=== PATIENT | male | born 1950 | race Caucasian/White ===

== ENCOUNTER → 2017-06-11 | Day surgery (SDC) | payer OTHER ==
[2017-06-10 09:05] LABS: BASOPHILS % 0.5 % (0.0-1.0); EOSINOPHILS # (AUTO) 0.1 (0.0-0.4); EOSINOPHILS % 1.7 % (0.0-6.0); HEMATOCRIT 39.8 % (38.2-49.6); LYMPHOCYTES # (AUTO) 2.5 (1.0-3.2); LYMPHOCYTES % 30.6 % (18.0-39.1); MEAN CORPUSCULAR HEMOGLOBIN 30.4 pg (28-32); MEAN CORPUSCULAR HGB CONC 32.7 g/dL (31-35); MONOCYTES # (AUTO) 0.6 (0.2-0.8); MONOCYTES % 7.6 % (4.4-11.3); NEUTROPHILS # (AUTO) 4.9 (2.1-6.9); NEUTROPHILS % 59.4 % (38.7-80.0); PLATELET COUNT 151 x10e3/uL (140-360); RED BLOOD COUNT 4.28 x10e6/uL (4.3-5.7); RED CELL DISTRIBUTION WIDTH 13.2 % (11.7-14.4)
--- NOTE | 2017-06-10 10:00 | Diagnostic Imaging Report ---
PROCEDURE: X-RAY CHEST, TWO VIEWS COMPARISON: None. INDICATIONS: PRE OPERATIVE CHEST X-RAY FOR KIDNEY SURGERY FINDINGS: LUNGS: No consolidations or edema. PLEURA: No effusions or pneumothorax. HEART \T\ MEDIASTINUM: The heart is within normal size-limits. BONES \T\ SOFT TISSUES: No acute findings. Degenerative changes of the spine. CONCLUSION: No acute thoracic abnormality. Bert Patel D.O. Dictated by: Bert Patel D.O. on 06/10/2017 at 10:09 Electronically approved by: Bert Patel D.O. on 06/10/2017 at 10:09
[~2017-06-11] MED LIST: AMLODIPINE BESY10 MG PO; CEFAZOLIN SOD 2 GM/D5W 50ML 50 ML IV ONE; FENTANYL CITRATE/PF 100MCG/2 ML INJ ONE; IOPAMIDOL 610MG/1ML 300 MG/ML VIAL IV ONE; LIDOCAINE HCL 2% LOCAL INJ 5 ML SDV VIAL INJ ONE; LISINOPRIL40 MG PO; MIDAZOLAM HCL 2 MG/2 ML VIAL ONE; ONDANSETRON HCL INJ 2 MG/ML VIAL ONE; PROPOFOL IV EMULSION 10 MG/ML 50 ML VIAL ONE; SEVOFLURANE INHAL SOLN 250 ML PEN BTL ONE
--- OUTSIDE RECORDS SUMMARY | 2017-06-11 08:44 | XMS REPORT ---
Author [facility] Address Unknown Phone Unavailable Care Team Providers Care Merchandising Coordinator Name Role Phone ANNEMARIE PARRY Unavailable Unavailable Problems This patient has no known problems. Allergies, Adverse Reactions, Alerts This patient has no known allergies or adverse reactions. Medications This patient has no known medications. Results Test Description Test Time Test Comments Text Results Atomic Results Result Comments CHEST 2 VIEWS [place] [address] Patient Name: PIPPA GRIMM MR #: [id number] : 1950 Age/Sex: 67/M Req # : [id number] Adm Physician: Ordered by: ANNEMARIE PARRY MD Report #: [id number] Location: OR Room/Bed: Procedure: [id number] DX/CHEST 2 VIEWS Exam Date: 06/10/17 Exam Time: 0830 REPORT STATUS: Signed PROCEDURE: X-RAY CHEST, TWO VIEWS COMPARISON: None. INDICATIONS: PRE OPERATIVE CHEST X-RAY FOR KIDNEY SURGERY FINDINGS: LUNGS: No consolidations or edema. PLEURA: No effusions or pneumothorax. HEART T MEDIASTINUM: The heart is within normal size-limits. BONES T SOFT TISSUES: No acute findings. Degenerative changes of the spine. CONCLUSION: No acute thoracic abnormality. Romy Patel D.O. Dictated by: Romy Patel D.O. on 06/10/2017 at 10:09 Electronically approved by: Romy Patel D.O. on 06/10/2017 at 10:09 Dictated By: ROMY PATEL DO 1009 Transcribed By: BRITNEY on 06/10/17 1009 COPY TO: ANNEMARIE PARRY MD
--- NOTE | 2017-06-11 12:32 | Operative Report ---
DATE OF PROCEDURE: June 11, 2017 SERVICE: Urology. PREOPERATIVE DIAGNOSES 1. Gross hematuria, recurrent. 2. Right hydronephrosis. 3. Right ureteropelvic junction. 4. BPH and frequency. POSTOPERATIVE DIAGNOSES 1. Gross hematuria, recurrent. 2. Right hydronephrosis. 3. Right ureteropelvic junction. 4. BPH and frequency. OPERATION PERFORMED 1. Cystoscopy and left retrograde pyelogram under fluoroscopic control. This was done with different instrument not related to the contralateral side. 2. Right retrograde pyelogram under fluoroscopic control. 3. Right ureteroscopy. 4. Placement of double-J stent, 7 [place]an, 28 cm long, to the right side. 5. Interpretation of x-ray. Radiologist not present. 6. Supervision of fluoroscopy. Radiologist not present. FELT HAT STEAMER: None. ANESTHESIA: General. CLINICAL INDICATION NOTE: This is a 67-year-old patient who was brought for assessment of recurrent hematuria. On and off, the patient has significant hematuria. Patient has mild symptoms of prostatism as well. He was brought for evaluation of both sides. DESCRIPTION OF PROCEDURE AND FINDINGS: After proper level of anesthesia was achieved, the patient was placed in lithotomy position, prepped and draped in sterile fashion. Urethra was inspected and is unremarkable. The outlet is minimally obstructed by a large prostate. Bladder is somewhat trabeculated. No tumor and no foreign bodies were identified in the bladder. Both ureteral orifices are normal. Open-ended catheter was inserted to the left side, and retrograde pyelogram demonstrated a normal collecting system on the left side. Following this, open-ended catheter was inserted to the right side. Retrograde pyelogram demonstrated normal ureter up to the UPJ junction. It was possible to negotiate a wire up into the renal pelvis, and an open-ended catheter was inserted. Gross bloody urine is noticed. This was sent for culture and sensitivity. Following this, the guidewire was kept in place, and flexible ureteroscopy was done. It was possible to insert the scope into the UPJ. The renal pelvis is extensively dilated. Some calices are dilated as well. Due to the hematuria, it was not possible to identify clearly whether there is any significant pathology except the UPJ and the dilated system. Therefore, it was elected to place a double-J stent. The guidewire was kept in place, and a 7-Sing[place]an, 28 cm long, double-J stent was properly positioned on the right side. This was verified by x-ray and endoscopy. The patient tolerated the procedure well and was transferred in satisfactory condition to the recovery room. He will be followed for further evaluation. Job#: [id number] ADIEL
== END | disposition home or self-care (01) ==
LOC: OR 08:42
PROVIDERS: ATTEND Urology
DX: N13.5 Crossing vessel and stricture of ureter without hydronephrosis (principal); N13.30 Unspecified hydronephrosis; N40.1 Benign prostatic hyperplasia with lower urinary tract symptoms; R35.0 Frequency of micturition; I10 Essential (primary) hypertension; I44.0 Atrioventricular block, first degree; Z01.810 Encounter for preprocedural cardiovascular examination; Z01.812 Encounter for preprocedural laboratory examination; Z01.818 Encounter for other preprocedural examination; Z85.038 Personal history of other malignant neoplasm of large intestine
CPT/HCPCS: 36415; 52332; 52351; 71046; 74420; 85025; 87086; 93005; C2617; J2001; J2250; J2405; Q9967

== ENCOUNTER → 2017-08-11 | Day surgery (SDC) | payer OTHER ==
[~2017-08-11] MED LIST changes: +BELLADONNA/OPIUM 60 MG SUPP PR ONE; +CEFAZOLIN SOD 1 GM VIAL ONE; -CEFAZOLIN SOD 2 GM/D5W 50ML 50 ML IV ONE; +DEXAMETHASONE SOD PHOS INJ 4 MG/ML VIAL ONE; +IOPAMIDOL 300MG/ML 50ML INFUS..BTL IV ONE; -IOPAMIDOL 610MG/1ML 300 MG/ML VIAL IV ONE; +PROPOFOL IV EMULSION 10 MG/ML 20 ML VIAL ONE; -PROPOFOL IV EMULSION 10 MG/ML 50 ML VIAL ONE
--- NOTE | 2017-08-11 10:52 | Operative Report ---
DATE OF PROCEDURE: August 11, 2017 PREOPERATIVE DIAGNOSES 1. History of gross hematuria. 2. Right hydronephrosis. 3. Right double-J stent. POSTOPERATIVE DIAGNOSES 1. History of gross hematuria. 2. Right hydronephrosis. 3. Right double-J stent. 4. Question of ureteropelvic junction obstruction. 5. Tumor in the right pelvis. FIELD MECHANIC/SITE LEAD: None. OPERATION PERFORMED 1. Cystoscopy and removal of right double-J stent. 2. Right retrograde pyelogram under fluoroscopic control. 3. Right ureteroscopy and urine cytology sent from the right renal pelvis. 4. Placement of double-J stent, 7 [place]yan, 26 cm long, to the right side. 5. Interpretation of x-ray with radiologist not present. 6. Supervision of fluoroscopy with radiologist not present. ANESTHESIA: General. CLINICAL INDICATION NOTE: This is a 67-year-old patient who is brought for evaluation of question of UPJ on the right side, hydronephrosis, and gross hematuria coming from the right side. The patient was advised about the procedure, potential benefits and complications. DESCRIPTION OF PROCEDURE AND FINDINGS: After proper level of anesthesia was achieved, the patient was placed in lithotomy position, prepped and draped in usual sterile fashion. Urethra was inspected and was unremarkable, but the outlet is obstructed by a large prostate. Bladder is trabeculated. No tumor or foreign bodies identified in the bladder. Open-ended catheter is seen coming from the right ureteral orifice. The double J was pulled out through the urethral meatus, and a guidewire was passed through it and advanced to the kidney. Open-ended catheter followed. Retrograde pyelogram demonstrated quite distended renal pelvis and question of some irregular areas. Ureter is unremarkable. Following this, the wire was kept in place, and a flexible ureteroscopy was done. At the ureteropelvic junction, it appeared to be relatively narrow and somewhat irregular. There were also some irregular areas in the pelvis. No gross hematuria is present now. The renal pelvis urine was aspirated and sent for cytology. The guidewire was then kept in place, and a double-J stent, 7 [place]yan, 26 cm long, was properly positioned on the right side. The proximal part is in the renal pelvis and the distal in the bladder. This was verified by x-ray and endoscopy. The bladder was then irrigated. The scope was removed. The patient tolerated the procedure well and was transferred in satisfactory condition to the recovery room. Further treatment plan will be done after receiving the cytology reports. Job#: [id number] ADIEL
== END | disposition home or self-care (01) ==
LOC: OR 06:49
PROVIDERS: ATTEND Urology
DX: N13.30 Unspecified hydronephrosis (principal); Z46.6 Encounter for fitting and adjustment of urinary device; N32.89 Other specified disorders of bladder; R03.0 Elevated blood-pressure reading, without diagnosis of hypertension; Z87.891 Personal history of nicotine dependence
CPT/HCPCS: 52332; 52351; 74420; 88112; 88305; C2617; J0690; J1100; J2001; J2250; J2405; Q9967

== ENCOUNTER 2017-09-07 11:29 | Inpatient (IN) | payer OTHER ==
[2017-09-04 11:30] LABS: BASOPHILS % 0.4 % (0.0-1.0); EOSINOPHILS # (AUTO) 0.1 (0.0-0.4); HEMATOCRIT 41.1 % (38.2-49.6); HEMOGLOBIN 13.6 g/dL (14.0-18.0); MEAN CORPUSCULAR HEMOGLOBIN 30.6 pg (28-32); MEAN CORPUSCULAR HGB CONC 33.1 g/dL (31-35); MEAN CORPUSCULAR VOLUME 92.6 fL (81-99); MONOCYTES # (AUTO) 0.6 (0.2-0.8); MONOCYTES % 6.4 % (4.4-11.3); NEUTROPHILS # (AUTO) 6.3 (2.1-6.9); PLATELET COUNT 198 x10e3/uL (140-360); RED BLOOD COUNT 4.44 x10e6/uL (4.3-5.7); RED CELL DISTRIBUTION WIDTH 14.1 % (11.7-14.4)
[2017-09-04 11:41] LABS: INR 1.04; PROTHROMBIN TIME 12.8 seconds (11.9-14.5)
[2017-09-04 11:42] LABS: PARTIAL THROMBOPLASTIN TIME 26.5 seconds (23.8-35.5)
[2017-09-04 11:46] LABS: ANION GAP 11.3 mmol/L (8-16); CALCIUM 9.8 mg/dL (8.4-10.2); CREATININE, SERUM 1.52 mg/dL (0.72-1.25); POTASSIUM 5.3 mmol/L (3.5-5.1)
[~2017-09-07] VITALS: Ht 185.4 cm; Wt 127.5 kg
[~2017-09-07 11:29] MED LIST changes: -BELLADONNA/OPIUM 60 MG SUPP PR ONE; -CEFAZOLIN SOD 1 GM VIAL ONE; -DEXAMETHASONE SOD PHOS INJ 4 MG/ML VIAL ONE; -FENTANYL CITRATE/PF 100MCG/2 ML INJ ONE; +GELATIN SPONGE SZ 100 ONE; -IOPAMIDOL 300MG/ML 50ML INFUS..BTL IV ONE; -LIDOCAINE HCL 2% LOCAL INJ 5 ML SDV VIAL INJ ONE; +MANNITOL 25% 12.5GM/50ML 0 ML ONE; -MIDAZOLAM HCL 2 MG/2 ML VIAL ONE; -ONDANSETRON HCL INJ 2 MG/ML VIAL ONE; -PROPOFOL IV EMULSION 10 MG/ML 20 ML VIAL ONE; -SEVOFLURANE INHAL SOLN 250 ML PEN BTL ONE
[2017-09-07] MEDS ORDERED: CEFAZOLIN SOD 2 GM/D5W 50ML 50 ML IV ONE (11:46)
[2017-09-07] MEDS ORDERED: PROPOFOL IV EMULSION 10 MG/ML 20 ML VIAL ONE (14:25)
[2017-09-07] MEDS ORDERED: EPHEDRINE SULFATE INJ 50 MG/10 ML SYR ONE (14:25)
[2017-09-07] MEDS ORDERED: LIDOCAINE HCL 2% LOCAL INJ 5 ML SDV VIAL INJ ONE (14:25)
[2017-09-07] MEDS ORDERED: NEOSTIGMINE 5 MG/5ML SYR ONE (14:25)
[2017-09-07] MEDS ORDERED: ONDANSETRON HCL INJ 2 MG/ML VIAL ONE (14:25)
[2017-09-07] MEDS ORDERED: SEVOFLURANE INHAL SOLN 250 ML PEN BTL ONE (14:25)
[2017-09-07] MEDS ORDERED: DEXAMETHASONE SOD PHOS INJ 4 MG/ML VIAL ONE (14:25)
[2017-09-07] MEDS ORDERED: PHENYLEPHRINE HCL 1% 10 MG/ML VIAL ONE (14:25)
[2017-09-07] MEDS ORDERED: GLYCOPYRROLATE INJ 1MG/ 5 ML SYR ONE (14:25)
[2017-09-07] MEDS ORDERED: ONDANSETRON HCL INJ 2 MG/ML VIAL IV PRN (14:45)
[2017-09-07] MEDS ORDERED: DIPHENHYDRAMINE HCL INJ 50 MG/ML VIAL IM PRN (14:45)
[2017-09-07] MEDS ORDERED: MORPHINE SULFATE 1 MG/ML 30ML PCA IV PRN (14:45)
[2017-09-07] MEDS ORDERED: NALOXONE HCL INJ 0.4 MG/ML AMP IV PRN (14:45)
[2017-09-07] MEDS ORDERED: METOCLOPRAMIDE HCL 10 MG/2ML VIAL IV PRN (14:45)
[2017-09-07] MEDS ORDERED: MORPHINE SULFATE 1 MG/ML 30ML PCA ONE (15:34)
--- NOTE | 2017-09-07 16:48 | Diagnostic Imaging Report ---
PROCEDURE: A single AP view of the chest. COMPARISON: 06/10/17 INDICATIONS: RIGHT NEPHRECTOMY FINDINGS: Lines/tubes: None. Lungs: Limited by low lung volumes and body habitus. Right infrahilar and left basilar hazy opacification. Pleura: There is no significant pleural effusion or pneumothorax. Heart and mediastinum: Enlarged cardiomediastinal silhouette on this AP view. Bones: No acute bony abnormality. Free air under right hemidiaphragm. IMPRESSION: Limited as above. Right infrahilar and left basilar mild opacifications probably atelectasis. Underlying pneumonia cannot be entirely excluded in the appropriate clinical setting. Free air under the right hemidiaphragm, which is probably related to recent surgery. Dictated by: Narinder Grijalva M.D. on 09/07/2017 at 16:50 Electronically approved by: Narinder Grijalva M.D. on 09/07/2017 at 16:50
[2017-09-07] MEDS ORDERED: DOCUSATE SODIUM 100 MG CAP PO SCH (17:00)
[2017-09-07 17:13] VITALS: BP 152/71
[2017-09-07] MEDS: D5.45%NS/KCL 20MEQ 1,000 ML IV SCH (17:38)
[2017-09-07] MEDS: SODIUM CHLORIDE 0.9% 250ML IRRIG IR SCH ×3 (17:38→23:24)
[2017-09-07] MEDS ORDERED: MIDAZOLAM HCL 2 MG/2 ML VIAL ONE (17:48)
[2017-09-07] MEDS ORDERED: FENTANYL CITRATE/PF 100MCG/2 ML INJ ONE (17:48)
[2017-09-07 20:00] VITALS: BP 143/75
[2017-09-07 21:18] VITALS: BP 152/71
[2017-09-07] MEDS: CEFAZOLIN SOD 1 GM VIAL IV SCH (21:51)
[2017-09-07] MEDS ORDERED: CEFAZOLIN SOD 1 GM/NS 50ML 50 ML IV SCH (22:00)
--- NOTE | 2017-09-07 23:27 | Operative Report ---
DATE OF PROCEDURE: September 07, 2017 SERVICE: Urology. PREOPERATIVE DIAGNOSES 1. Right renal mass. 2. Right hydronephrosis. 3. Right uteropelvic junction obstruction. 4. Hematuria. 5. Stent on the right side. POSTOPERATIVE DIAGNOSES 1. Right renal mass. 2. Right hydronephrosis. 3. Right uteropelvic junction obstruction. 4. Hematuria. 5. Stent on the right side. OPERATIONS PERFORMED 1. Radical nephrectomy. 2. Removal of a double-J stent through urethrotomy. SLOT MACHINE MECHANIC: Dr. Quan Bass. TYPE OF ANESTHESIA: General. CLINICAL INDICATION NOTE: This is a 67-year-old patient that was found to have hematuria, poorly functioning kidney on the right side about 6% of the function and the UPJ obstruction, question of a tumor in the kidney. The patient was brought for radical nephrectomy and removal of the double-J stent. He was advised about the procedure and the potential for benefits, as well as complications, and accepted. DESCRIPTION OF PROCEDURE AND FINDINGS: After proper level of anesthesia was achieved, the patient was placed in right flank position. Incision was made over the lower rib and extended anteriorly about 3 inches of the rib were then dissected and removed. Following this, Gerota fascia content of the kidney was dissected circumferentially anteriorly and posteriorly. Of note, there was a significant adherence to the kidney, to the tissue, and a palpable mass was noticed. Dissection of the ureter was then done. Short transverse incision was made in the ureter. The double-J stent was removed and the ureter was ligated proximally and distally. No tumor was noticed in the ureter. Following this dissection, posteriorly identified the renal artery. It was ligated with #1 silk and vascular clips were able for security. Following this, dissection was done superiorly, inferiorly, and medially. The renal vein was identified and due to the significant adherence around it, it was closed by suturing it with 0-Prolene running sutures. No active bleeding was noticed at the end. Small openings of the chest was identified. The air was aspirated with the suction and overinflating of the lung and closed with 2-0 Vicryl running sutures. The wound was irrigated periodically with distilled water. Hence, a 19-Jaime drain was placed and brought through a separate stab incision and secured to the skin with a nylon suture. The wound was closed in layers using 0-Vicryl interrupted figure-of-8. The internal oblique and the transversalis were sutured in 1 layer. The external oblique as a separate layer. Between each layer, irrigation was done. The skin was approximated with skin tomasz. Patient tolerated the procedure well, was transferred in satisfactory condition to recovery room. He will be admitted. The specimen was sent to pathology for frozen section and the pathologist informed us that she noticed a tumor in the kidney. 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 Final pathology will be pending. Upon the filling of the final pathology, further steps in management will be decided. Estimated blood loss during the procedure probably 1 unit. Patient tolerated the procedure well. Cowart was kept. Job#: [id number] CQ
[2017-09-08] VITALS (7 sets, daily range): BP systolic 144–172; BP diastolic 74–88
[2017-09-08] MEDS: SODIUM CHLORIDE 0.9% 250ML IRRIG IR SCH ×6 (02:45→22:55)
[2017-09-08] MEDS: D5.45%NS/KCL 20MEQ 1,000 ML IV SCH (05:53)
[2017-09-08] MEDS: CEFAZOLIN SOD 1 GM VIAL IV SCH ×3 (05:54→21:35)
[2017-09-08] MEDS: ACETAMINOPHEN 1000 MG/100 ML IV PRN ×2 (05:54→12:32)
[2017-09-08 07:14] LABS: BASOPHILS % 0.1 % (0.0-1.0); HEMATOCRIT 38.1 % (38.2-49.6); HEMOGLOBIN 12.6 g/dL (14.0-18.0); LYMPHOCYTES # (AUTO) 1.1 (1.0-3.2); LYMPHOCYTES % 7.3 % (18.0-39.1); MEAN CORPUSCULAR HEMOGLOBIN 30.7 pg (28-32); MEAN CORPUSCULAR HGB CONC 33.1 g/dL (31-35); MEAN CORPUSCULAR VOLUME 92.9 fL (81-99); MONOCYTES # (AUTO) 0.9 (0.2-0.8); NEUTROPHILS # (AUTO) 12.8 (2.1-6.9); NEUTROPHILS % 86.1 % (38.7-80.0); PLATELET COUNT 201 x10e3/uL (140-360); RED CELL DISTRIBUTION WIDTH 13.6 % (11.7-14.4)
[2017-09-08 07:44] LABS: ANION GAP 11.1 mmol/L (8-16); CALCIUM 8.6 mg/dL (8.4-10.2); CREATININE, SERUM 1.49 mg/dL (0.72-1.25); POTASSIUM 5.1 mmol/L (3.5-5.1)
[2017-09-08] MEDS ORDERED: HYDROMORPHONE 1MG/1ML INJ IV PRN (08:45)
[2017-09-08] MEDS: HYDRALAZINE HCL 20 MG/ML VIAL IV PRN (09:38)
[2017-09-08] MEDS: DEXTROSE 5%/0.45% SOD CHL 1,000 ML IV SCH ×2 (09:38→22:56)
[2017-09-08] MEDS ORDERED: ONDANSETRON HCL 4 MG ORAL DISINTEGRATING TAB PO PRN (10:30)
[2017-09-08] MEDS ORDERED: HYDROMORPHONE 2MG/ML INJ IV PRN (12:45)
[2017-09-08] MEDS: HYDROMORPHONE 2MG/ML INJ IV PRN ×2 (14:04→22:27)
[2017-09-08] MEDS: METOPROLOL TARTRATE INJ 1 MG/ML VIAL IV PRN (21:35)
[2017-09-09] VITALS (7 sets, daily range): BP systolic 137–170; BP diastolic 69–82
[2017-09-09] MEDS: SODIUM CHLORIDE 0.9% 250ML IRRIG IR SCH ×3 (01:16→10:19)
[2017-09-09] MEDS: CEFAZOLIN SOD 1 GM VIAL IV SCH ×3 (05:38→21:17)
[2017-09-09] MEDS: METOPROLOL TARTRATE INJ 1 MG/ML VIAL IV PRN (06:03)
[2017-09-09 07:38] LABS: BASOPHILS % 0.1 % (0.0-1.0); EOSINOPHILS % 0.1 % (0.0-6.0); HEMATOCRIT 37.7 % (38.2-49.6); HEMOGLOBIN 12.6 g/dL (14.0-18.0); LYMPHOCYTES # (AUTO) 1.6 (1.0-3.2); LYMPHOCYTES % 10.4 % (18.0-39.1); MEAN CORPUSCULAR HEMOGLOBIN 31.1 pg (28-32); MEAN CORPUSCULAR HGB CONC 33.4 g/dL (31-35); MEAN CORPUSCULAR VOLUME 93.1 fL (81-99); MONOCYTES # (AUTO) 0.9 (0.2-0.8); NEUTROPHILS # (AUTO) 12.4 (2.1-6.9); PLATELET COUNT 196 x10e3/uL (140-360); RED BLOOD COUNT 4.05 x10e6/uL (4.3-5.7); RED CELL DISTRIBUTION WIDTH 13.8 % (11.7-14.4)
[2017-09-09 07:57] LABS: ANION GAP 12.4 mmol/L (8-16); CALCIUM 9.2 mg/dL (8.4-10.2); CREATININE, SERUM 1.3 mg/dL (0.72-1.25); POTASSIUM 4.4 mmol/L (3.5-5.1)
[2017-09-09] MEDS: HYDROMORPHONE 2MG/ML INJ IV PRN (08:15)
[2017-09-09] MEDS: KETOROLAC TROMETHAMINE 30 MG/ML VIAL IV PRN ×2 (13:47→20:13)
[2017-09-09] MEDS: DEXTROSE 5%/0.45% SOD CHL 1,000 ML IV SCH (17:46)
[2017-09-10] VITALS (7 sets, daily range): BP systolic 154–174; BP diastolic 68–86
[2017-09-10] MEDS: DEXTROSE 5%/0.45% SOD CHL 1,000 ML IV SCH ×2 (00:45→07:32)
[2017-09-10] MEDS: METOPROLOL TARTRATE INJ 1 MG/ML VIAL IV PRN (01:00)
[2017-09-10] MEDS: HYDRALAZINE HCL 20 MG/ML VIAL IV PRN (05:00)
[2017-09-10] MEDS: CEFAZOLIN SOD 1 GM VIAL IV SCH ×3 (05:30→21:54)
[2017-09-10] MEDS: KETOROLAC TROMETHAMINE 30 MG/ML VIAL IV PRN (05:43)
[2017-09-10 07:34] LABS: BASOPHILS % 0.3 % (0.0-1.0); EOSINOPHILS # (AUTO) 0.1 (0.0-0.4); EOSINOPHILS % 0.5 % (0.0-6.0); HEMATOCRIT 38.5 % (38.2-49.6); HEMOGLOBIN 12.5 g/dL (14.0-18.0); LYMPHOCYTES # (AUTO) 1.8 (1.0-3.2); LYMPHOCYTES % 15.3 % (18.0-39.1); MEAN CORPUSCULAR HEMOGLOBIN 30.5 pg (28-32); MEAN CORPUSCULAR HGB CONC 32.5 g/dL (31-35); MEAN CORPUSCULAR VOLUME 93.9 fL (81-99); MONOCYTES # (AUTO) 0.8 (0.2-0.8); MONOCYTES % 6.6 % (4.4-11.3); NEUTROPHILS # (AUTO) 8.9 (2.1-6.9); NEUTROPHILS % 76.9 % (38.7-80.0); PLATELET COUNT 211 x10e3/uL (140-360); RED CELL DISTRIBUTION WIDTH 13.5 % (11.7-14.4)
[2017-09-10 07:55] LABS: ANION GAP 12.2 mmol/L (8-16); CALCIUM 9.4 mg/dL (8.4-10.2); CREATININE, SERUM 1.54 mg/dL (0.72-1.25); POTASSIUM 4.2 mmol/L (3.5-5.1)
[2017-09-10] MEDS: AMLODIPINE BESYLATE 10 MG TAB PO SCH (15:05)
[2017-09-10] MEDS: ACETAMINOPHEN/CODEINE 300MG - 30MG TAB PO PRN (21:40)
[2017-09-11] VITALS: BP 147/84
[2017-09-11 04:00] VITALS: BP 132/87
[2017-09-11] MEDS: CEFAZOLIN SOD 1 GM VIAL IV SCH ×2 (05:56→14:00)
[2017-09-11 08:01] LABS: BASOPHILS % 0.3 % (0.0-1.0); EOSINOPHILS # (AUTO) 0.3 (0.0-0.4); EOSINOPHILS % 3.2 % (0.0-6.0); HEMATOCRIT 36.3 % (38.2-49.6); LYMPHOCYTES # (AUTO) 1.9 (1.0-3.2); LYMPHOCYTES % 20.3 % (18.0-39.1); MEAN CORPUSCULAR HEMOGLOBIN 30.7 pg (28-32); MEAN CORPUSCULAR HGB CONC 33.1 g/dL (31-35); MEAN CORPUSCULAR VOLUME 92.8 fL (81-99); MONOCYTES # (AUTO) 0.7 (0.2-0.8); MONOCYTES % 7.1 % (4.4-11.3); NEUTROPHILS # (AUTO) 6.6 (2.1-6.9); NEUTROPHILS % 68.8 % (38.7-80.0); PLATELET COUNT 211 x10e3/uL (140-360); RED BLOOD COUNT 3.91 x10e6/uL (4.3-5.7); RED CELL DISTRIBUTION WIDTH 13.4 % (11.7-14.4)
[2017-09-11 08:24] VITALS: BP 159/84
[2017-09-11 08:30] LABS: ANION GAP 12.6 mmol/L (8-16); CALCIUM 9.3 mg/dL (8.4-10.2); CREATININE, SERUM 1.49 mg/dL (0.72-1.25); POTASSIUM 3.6 mmol/L (3.5-5.1)
--- NOTE | 2017-09-11 09:21 | Discharge Summary ---
PRIMARY CARE PHYSICIAN: Dr. Kely Tsang EMPLOYEE DEVELOPMENT DIRECTOR: Dr. Norberto Bass FINAL DIAGNOSES 1. Status post right radical nephrectomy secondary to right renal mass. 2. History of hydronephrosis and hematuria. SUMMARY: This 67-year-old male had major surgery, right renal mass nephrectomy. Patient will need a secondary procedure later to remove his right ureter area. The patient is otherwise stable at this time. He had an ileus. NG tube was placed and continued post surgery, but it was removed within 24 to 48 hours. Currently, the patient is stable. He is doing well. He will go home today. He will follow up with Dr. Norberto Bass in approximately 1 to 2 weeks for postoperative care. He will follow up with his family doctor for any adjustments and update on his medications. Discharged with a 2 gram sodium diet. Activity as needed. Followup per Dr. Bass's instructions. Job#: [id number]
[2017-09-11] MEDS: AMLODIPINE BESYLATE 10 MG TAB PO SCH (09:49)
[2017-09-11 09:55] VITALS: BP 159/84
[2017-09-11] MEDS: ACETAMINOPHEN/CODEINE 300MG - 30MG TAB PO PRN (11:58)
[2017-09-11 12:34] VITALS: BP 145/80
[2017-09-11] MEDS ORDERED: TYLENOL WITH C1 EACH PO (12:49)
[2017-09-11] MEDS ORDERED: COLACE100 MG/10 PO (12:50)
[2017-09-11] MEDS ORDERED: COLACE100 MG PO (12:50)
== END 2017-09-11 14:57 | disposition home or self-care (01) | DRG 657 ==
LOC: OR 11:29 → MED/SURG 15:41
PROVIDERS: ADMIT Internal Medicine; ATTEND Internal Medicine
PROC: 0TP98DZ Removal of Intraluminal Device from Ureter, Via Natural or Artificial Opening Endoscopic (ICD-10-PCS; 2017-09-07)
PROC: 0TB00ZZ Excision of Right Kidney, Open Approach (ICD-10-PCS; principal; 2017-09-07 13:30)
DX: C64.1 Malignant neoplasm of right kidney, except renal pelvis (principal); N13.0 Hydronephrosis with ureteropelvic junction obstruction; N28.89 Other specified disorders of kidney and ureter; K42.9 Umbilical hernia without obstruction or gangrene; I12.9 Hypertensive chronic kidney disease with stage 1 through stage 4 chronic kidney disease, or unspecified chronic kidney disease; N18.9 Chronic kidney disease, unspecified; E66.9 Obesity, unspecified; Z68.37 Body mass index [BMI] 37.0-37.9, adult
CPT/HCPCS: 36415; 71045; 80048; 83735; 85025; 85610; 85730; 86850; 86900; 88307; 88309; J0360; J0690; J1100; J1885; J2001; J2150; J2250; J2270; J2370; J2405

== ENCOUNTER 2017-10-21 07:16 | Inpatient (IN) | payer OTHER ==
[2017-10-15 08:50] LABS: BASOPHILS # (AUTO) 0.1 (0.0-0.1); BASOPHILS % 0.6 % (0.0-1.0); EOSINOPHILS # (AUTO) 0.2 (0.0-0.4); EOSINOPHILS % 2.3 % (0.0-6.0); HEMATOCRIT 42.9 % (38.2-49.6); HEMOGLOBIN 13.8 g/dL (14.0-18.0); LYMPHOCYTES # (AUTO) 2.5 (1.0-3.2); LYMPHOCYTES % 29.1 % (18.0-39.1); MEAN CORPUSCULAR HEMOGLOBIN 30.2 pg (28-32); MEAN CORPUSCULAR HGB CONC 32.2 g/dL (31-35); MEAN CORPUSCULAR VOLUME 93.9 fL (81-99); MONOCYTES # (AUTO) 0.6 (0.2-0.8); MONOCYTES % 7.4 % (4.4-11.3); NEUTROPHILS # (AUTO) 5.2 (2.1-6.9); NEUTROPHILS % 60.4 % (38.7-80.0); PLATELET COUNT 238 x10e3/uL (140-360); RED BLOOD COUNT 4.57 x10e6/uL (4.3-5.7); RED CELL DISTRIBUTION WIDTH 13.6 % (11.7-14.4)
[~2017-10-21] VITALS: Ht 185.4 cm; Wt 127.5 kg
[~2017-10-21 07:16] MED LIST changes: +COLACE100 MG PO; +COLACE100 MG/10 PO; -GELATIN SPONGE SZ 100 ONE; -MANNITOL 25% 12.5GM/50ML 0 ML ONE; +TYLENOL WITH C1 EACH PO
[2017-10-21] MEDS ORDERED: CEFAZOLIN SOD 2 GM/D5W 50ML 50 ML IV ONE (08:09)
[2017-10-21] MEDS ORDERED: GELATIN SPONGE SZ 100 ONE (10:03)
[2017-10-21] MEDS ORDERED: NEOSTIGMINE 1 MG/ML 10ML VIAL ONE (12:41)
[2017-10-21] MEDS: D5.45%NS/KCL 20MEQ 1,000 ML IV SCH (13:29)
[2017-10-21] MEDS ORDERED: MORPHINE SULFATE 1 MG/ML 30ML PCA IV PRN (13:30)
[2017-10-21] MEDS: SODIUM CHLORIDE 0.9% 250ML IRRIG IR SCH ×2 (13:30→17:30)
[2017-10-21] MEDS ORDERED: NALOXONE HCL INJ 0.4 MG/ML AMP IV PRN (13:30)
[2017-10-21] MEDS ORDERED: ACETAMINOPHEN 1000 MG/100 ML IV PRN (13:30)
[2017-10-21] MEDS ORDERED: ONDANSETRON HCL INJ 2 MG/ML VIAL IV PRN (13:30)
[2017-10-21] MEDS ORDERED: DIPHENHYDRAMINE HCL INJ 50 MG/ML VIAL IM PRN (13:30)
[2017-10-21] MEDS ORDERED: CEFAZOLIN SOD 1 GM/NS 50ML 50 ML IV SCH (14:00)
[2017-10-21] MEDS ORDERED: DEXAMETHASONE SOD PHOS INJ 4 MG/ML VIAL ONE (14:03)
[2017-10-21] MEDS ORDERED: PROPOFOL IV EMULSION 10 MG/ML 20 ML VIAL ONE (14:03)
[2017-10-21] MEDS ORDERED: LIDOCAINE HCL 2% LOCAL INJ 5 ML SDV VIAL INJ ONE (14:03)
[2017-10-21] MEDS ORDERED: ROCURONIUM BROMIDE 10 MG/ML 5ML VIAL ONE (14:03)
[2017-10-21] MEDS ORDERED: HYDROMORPHONE 1MG/1ML INJ ONE (14:16)
[2017-10-21] MEDS ORDERED: MORPHINE SULFATE 1 MG/ML 30ML PCA ONE (14:17)
--- NOTE | 2017-10-21 14:35 | Diagnostic Imaging Report ---
PROCEDURE: A single AP view of the chest. COMPARISON: Chest radiograph 09/07/2017 INDICATIONS: POST SURGERY, RULE OUT PNEUMOTHORAX FINDINGS: Lines/tubes: NG/OG tube visualized to the distal esophagus. Film under penetration limits visualization beyond this point. Lungs: The lungs are moderately inflated. There is mild bibasilar atelectasis. There is no evidence of pulmonary edema. Pleura: There is no pleural effusion or pneumothorax. Heart and mediastinum: The heart and the mediastinum are unremarkable. Bones: No acute bony abnormality. Upper abdomen: Free air under the right diaphragm, likely related to recent surgery. IMPRESSION: 1. No evidence of pneumothorax. 2. Free air under the right hemidiaphragm, likely related to reported surgery. 3. Difficulty in visualizing the distal extent of the nasogastric tube beyond the distal esophagus/GE junction. Consider KUB for further evaluation. Dictated by: Billy Matias M.D. on 10/21/2017 at 14:38 Electronically approved by: Billy Matias M.D. on 10/21/2017 at 14:38
[2017-10-21] MEDS ORDERED: PROMETHAZINE HCL (IM) 25 MG/ML VIAL ONE (14:36)
[2017-10-21] MEDS ORDERED: MIDAZOLAM HCL 2 MG/2 ML VIAL ONE (15:31)
[2017-10-21] MEDS ORDERED: FENTANYL CITRATE/PF 100MCG/2 ML INJ ONE (15:31)
[2017-10-21] MEDS: DOCUSATE SODIUM 100 MG CAP PO SCH (17:00)
[2017-10-21] MEDS ORDERED: DESFLURANE 240 ML BTL INH ONE (18:48)
[2017-10-21 19:59] VITALS: BP 166/92
--- NOTE | 2017-10-21 20:00 | Operative Report ---
DATE OF PROCEDURE: October 21, 2017 SERVICE: Urology. PREOPERATIVE DIAGNOSES: 1. 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 2. 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 3. Hematuria. 4. Umbilical hernia. POSTOPERATIVE DIAGNOSES: 1. 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 2. 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 3. Hematuria. 4. Umbilical hernia. OPERATION PERFORMED: Right total ureterectomy with removal of cuff of the bladder. METAL GRADER: Dr. Quan Bass. TYPE OF ANESTHESIA: General. CLINICAL INDICATION NOTE: This is a 67-year-old patient who was found to have transitional cell cancer of the kidney on the right side. He underwent staged procedure. The right kidney was removed. There was also involvement of the ureter. Patient was brought for removal of the ureter for complete ureterectomy with bladder cuff. Patient has also umbilical hernia which is bothering him. DESCRIPTION OF THE PROCEDURE AND FINDINGS: After proper level of anesthesia was achieved, the patient was prepped and draped in a sterile fashion. An incision was made in the midline between the symphysis pubis about an inch below the umbilicus. Then, it was extended laterally to the right side. The fascia was opened. Any visible bleeding points were carefully coagulated. Then, an extraperitoneal dissection was done. The spermatic cord was identified and a [place] drain was placed around it. It was not transected. Dissection was then carried out to identify the ureter. The ureter was identified and careful blunt and sharp dissection was done to remove the whole ureter up to the point of previous transection. A clip at the top marked the point of the proximal ureter. Following this, dissection of the ureter was done out of the bladder all the way down to the bladder. At that point, an incision was made in anterior wall of the bladder. Stay sutures with 3-0 silk were used to retract the opening into the bladder. A silk suture was used and the orifice to the right ureter was identified and a [id number] suture was placed on it. Following this, dissection circumferentially around the orifice was done and careful dissection towards the outer layer of the bladder was carried out before removing is completely. A 3-0 chromic catgut was used to close the opening of the detrusor. Following this, full dissection of the ureter was done and the ureter and the cuff of bladder was removed. The deeper layer of the bladder was closed with 3-0 running chromic catgut. Following this, the mucosa was closed with a running 3-0 chromic catgut. Cowart catheter was then inserted, 24-[place], and inflated with 15 mL of water. The bladder incision was then closed in 2 layers, running layer of the muscularis and 2nd layer that included the serosa and small parts of the detrusor. The closure of the bladder appeared to be quite water tight. At that point, 19-[place] tubular drain was inserted through the left side of the incision and brought into the area of dissection. The rectus muscle that was transected from the symphysis pubis to expose the retroperitoneum was re-sutured using #1 Vicryl, 2 sutures of [id number]. The fascia was then closed using #1 Vicryl interrupted [id number]. The wound was irrigated periodically with water. After closure of the fascia, the subcuticular tissue was approximated with 3-0 chromic and the skin was approximated with skin tomasz. The drain was secured with a nylon suture. Patient tolerated the procedure well. Estimated blood loss was less than 100 mL. The umbilical hernia will be repaired by Dr. Quan Bass. Job#: [id number] EZEQUIEL
[2017-10-21] MEDS: CEFAZOLIN SOD 1 GM VIAL IV SCH (20:50)
[2017-10-21 21:20] VITALS: BP 166/92
[2017-10-22] VITALS (8 sets, daily range): BP systolic 132–169; BP diastolic 70–94
[2017-10-22] MEDS: D5.45%NS/KCL 20MEQ 1,000 ML IV SCH ×3 (00:21→07:05)
[2017-10-22] MEDS: SODIUM CHLORIDE 0.9% 250ML IRRIG IR SCH ×3 (00:41→05:30)
[2017-10-22] MEDS: CEFAZOLIN SOD 1 GM VIAL IV SCH ×3 (02:26→17:03)
[2017-10-22 05:50] LABS: BASOPHILS % 0.1 % (0.0-1.0); EOSINOPHILS % 0.1 % (0.0-6.0); HEMATOCRIT 39.5 % (38.2-49.6); HEMOGLOBIN 13.1 g/dL (14.0-18.0); LYMPHOCYTES # (AUTO) 1.8 (1.0-3.2); LYMPHOCYTES % 12.7 % (18.0-39.1); MEAN CORPUSCULAR HEMOGLOBIN 30.5 pg (28-32); MEAN CORPUSCULAR HGB CONC 33.2 g/dL (31-35); MEAN CORPUSCULAR VOLUME 92.1 fL (81-99); MONOCYTES % 7.2 % (4.4-11.3); NEUTROPHILS # (AUTO) 11.1 (2.1-6.9); NEUTROPHILS % 79.5 % (38.7-80.0); PLATELET COUNT 253 x10e3/uL (140-360); RED BLOOD COUNT 4.29 x10e6/uL (4.3-5.7); RED CELL DISTRIBUTION WIDTH 13.5 % (11.7-14.4)
[2017-10-22 06:08] LABS: ANION GAP 11.2 mmol/L (8-16); CALCIUM 9.1 mg/dL (8.4-10.2); CREATININE, SERUM 1.42 mg/dL (0.72-1.25); POTASSIUM 5.2 mmol/L (3.5-5.1)
[2017-10-22] MEDS: DOCUSATE SODIUM 100 MG CAP PO SCH ×2 (07:59→16:20)
[2017-10-22] MEDS ORDERED: DEXTROSE 5%/0.45% SOD CHL 1,000 ML IV SCH (08:30)
[2017-10-22] MEDS ORDERED: MORPHINE SULFATE 1 MG/ML 30ML PCA IV PRN (08:30)
[2017-10-22] MEDS ORDERED: HYDRALAZINE HCL 20 MG/ML VIAL IV PRN (09:45)
[2017-10-22] MEDS: SODIUM CHLORIDE 0.45% 1,000 ML IV SCH ×3 (09:45→19:15)
--- NOTE | 2017-10-22 10:01 | History and Physical ---
PRIMARY CARE PROVIDER: Dr. Edge SERVICE CENTER TECHNICIAN: Dr. Quan Bass CHIEF COMPLAINT: Status post urological procedures of right total ureterectomy with removal of the cuff of the urinary bladder and also umbilical hernia repair. HISTORY: Patient is a 67-year-old male with transitional cell cancer of the of right kidney. Patient had previously had a right nephrectomy, and now he is found have transitional cell of the upper ureter on the right side. Now, he is status post operative day #1. The patient is stable. He is ambulatory. No chest pain. No shortness of breath. PAST MEDICAL HISTORY: Transitional cell renal cancer, post now right total ureterectomy with removal of the cuff of the urinary bladder, history of right nephrectomy, status post umbilical hernia repair. SOCIAL HISTORY: Patient does not smoke or use alcohol. No recreational drugs. ALLERGIES: NO KNOWN ALLERGIES. HOME MEDICATIONS: Norvasc 10 mg daily. PHYSICAL EXAMINATION VITAL SIGNS: Temperature is 98, blood pressure 132/79, pulse rate is 95, respirations 18. GENERAL: The patient is not in acute distress. He is awake. HEENT: Normocephalic, atraumatic and anicteric. NECK: Supple grossly. PULMONARY: Diminished breath sounds. CARDIOVASCULAR: Regular rate and rhythm. ABDOMEN: Status post surgical intervention. EXTREMITIES: No cyanosis. No edema. NEUROLOGIC: No focal deficit. LABORATORY: Reviewed. IMPRESSION 1. Status post radical right ureterectomy with removal of the urinary bladder bulb. 2. Status post umbilical hernia repair. 3. Hypertension. PLAN: Adjustment of his home medications. Adjustment of IV fluids. Will repeat the lab work. Continue with current medications. Will monitor the patient closely. Job#: [id number] DAPHNIE
[2017-10-23] VITALS (7 sets, daily range): BP systolic 139–172; BP diastolic 68–81
[2017-10-23] MEDS: CEFAZOLIN SOD 1 GM VIAL IV SCH ×3 (02:06→17:17)
[2017-10-23 06:29] LABS: BASOPHILS % 0.3 % (0.0-1.0); EOSINOPHILS # (AUTO) 0.1 (0.0-0.4); EOSINOPHILS % 0.5 % (0.0-6.0); HEMATOCRIT 36.5 % (38.2-49.6); HEMOGLOBIN 12.1 g/dL (14.0-18.0); LYMPHOCYTES # (AUTO) 1.7 (1.0-3.2); LYMPHOCYTES % 13.9 % (18.0-39.1); MEAN CORPUSCULAR HEMOGLOBIN 30.1 pg (28-32); MEAN CORPUSCULAR HGB CONC 33.2 g/dL (31-35); MEAN CORPUSCULAR VOLUME 90.8 fL (81-99); MONOCYTES # (AUTO) 1.1 (0.2-0.8); MONOCYTES % 8.8 % (4.4-11.3); NEUTROPHILS # (AUTO) 9.2 (2.1-6.9); NEUTROPHILS % 76.2 % (38.7-80.0); PLATELET COUNT 195 x10e3/uL (140-360); RED BLOOD COUNT 4.02 x10e6/uL (4.3-5.7); RED CELL DISTRIBUTION WIDTH 13.2 % (11.7-14.4)
[2017-10-23 07:02] LABS: ANION GAP 10.3 mmol/L (8-16); CALCIUM 8.9 mg/dL (8.4-10.2); CREATININE, SERUM 1.21 mg/dL (0.72-1.25); POTASSIUM 4.3 mmol/L (3.5-5.1)
[2017-10-23] MEDS: DOCUSATE SODIUM 100 MG CAP PO SCH ×2 (09:00→17:08)
[2017-10-23] MEDS: SODIUM CHLORIDE 0.45% 1,000 ML IV SCH ×2 (11:53→17:08)
[2017-10-23] MEDS ORDERED: ACETAMINOPHEN/CODEINE 300MG - 30MG TAB PO PRN (13:45)
[2017-10-24] VITALS (8 sets, daily range): BP systolic 141–186; BP diastolic 77–97
[2017-10-24] MEDS: SODIUM CHLORIDE 0.45% 1,000 ML IV SCH ×2 (02:30→09:44)
[2017-10-24] MEDS: CEFAZOLIN SOD 1 GM VIAL IV SCH ×3 (02:30→17:05)
[2017-10-24 05:28] LABS: BASOPHILS % 0.2 % (0.0-1.0); EOSINOPHILS # (AUTO) 0.2 (0.0-0.4); EOSINOPHILS % 1.9 % (0.0-6.0); HEMATOCRIT 37.9 % (38.2-49.6); HEMOGLOBIN 12.3 g/dL (14.0-18.0); LYMPHOCYTES # (AUTO) 1.8 (1.0-3.2); LYMPHOCYTES % 16.9 % (18.0-39.1); MEAN CORPUSCULAR HEMOGLOBIN 29.9 pg (28-32); MEAN CORPUSCULAR HGB CONC 32.5 g/dL (31-35); MONOCYTES # (AUTO) 0.8 (0.2-0.8); MONOCYTES % 7.5 % (4.4-11.3); NEUTROPHILS # (AUTO) 7.5 (2.1-6.9); PLATELET COUNT 198 x10e3/uL (140-360); RED BLOOD COUNT 4.12 x10e6/uL (4.3-5.7); RED CELL DISTRIBUTION WIDTH 13.2 % (11.7-14.4)
[2017-10-24 05:38] LABS: ANION GAP 13.8 mmol/L (8-16); BLOOD UREA NITROGEN 15 mg/dL (7-26); BUN/CREATININE RATIO 15 (6-25); CALCIUM 8.9 mg/dL (8.4-10.2); CARBON DIOXIDE 21 mmol/L (22-29); CHLORIDE 104 mmol/L (98-107); EST GLOMERULAR FILTRATION RATE > 60 ML/MIN (60-); GLUCOSE 110 mg/dL (74-118); POTASSIUM 3.8 mmol/L (3.5-5.1); SODIUM 135 mmol/L (136-145)
[2017-10-24] MEDS ORDERED: ACETAMINOPHEN 325 MG TAB PO PRN (07:15)
[2017-10-24] MEDS: DOCUSATE SODIUM 100 MG CAP PO SCH ×2 (08:19→16:44)
[2017-10-24] MEDS: AMLODIPINE BESYLATE 10 MG TAB PO SCH (08:19)
[2017-10-24] MEDS ORDERED: NIFEDIPINE CR 30 MG TAB PO ONE (17:30)
[2017-10-25] VITALS: BP_SYST 143; BP_SYST 145; BP_DIAS 74
[2017-10-25] MEDS: CEFAZOLIN SOD 1 GM VIAL IV SCH ×3 (02:00→09:19)
[2017-10-25 04:00] VITALS: BP 148/83
[2017-10-25 06:27] LABS: BASOPHILS % 0.4 % (0.0-1.0); EOSINOPHILS # (AUTO) 0.4 (0.0-0.4); EOSINOPHILS % 4.5 % (0.0-6.0); HEMATOCRIT 36.2 % (38.2-49.6); HEMOGLOBIN 12.3 g/dL (14.0-18.0); LYMPHOCYTES # (AUTO) 1.7 (1.0-3.2); LYMPHOCYTES % 18.8 % (18.0-39.1); MEAN CORPUSCULAR HEMOGLOBIN 30.2 pg (28-32); MEAN CORPUSCULAR VOLUME 88.9 fL (81-99); MONOCYTES # (AUTO) 0.7 (0.2-0.8); MONOCYTES % 7.6 % (4.4-11.3); NEUTROPHILS # (AUTO) 6.2 (2.1-6.9); NEUTROPHILS % 68.5 % (38.7-80.0); PLATELET COUNT 242 x10e3/uL (140-360); RED BLOOD COUNT 4.07 x10e6/uL (4.3-5.7); RED CELL DISTRIBUTION WIDTH 13.1 % (11.7-14.4)
[2017-10-25 07:04] LABS: ANION GAP 12.7 mmol/L (8-16); BLOOD UREA NITROGEN 16 mg/dL (7-26); BUN/CREATININE RATIO 16 (6-25); CARBON DIOXIDE 23 mmol/L (22-29); CHLORIDE 107 mmol/L (98-107); EST GLOMERULAR FILTRATION RATE > 60 ML/MIN (60-); GLUCOSE 111 mg/dL (74-118); POTASSIUM 3.7 mmol/L (3.5-5.1); SODIUM 139 mmol/L (136-145)
[2017-10-25] MEDS ORDERED: NIFEDIPINE CR 30 MG TAB PO SCH (09:00)
[2017-10-25] MEDS: AMLODIPINE BESYLATE 10 MG TAB PO SCH (09:18)
[2017-10-25] MEDS: DOCUSATE SODIUM 100 MG CAP PO SCH (09:18)
[2017-10-25 09:23] VITALS: BP 130/64
[2017-10-25] MEDS ORDERED: ZOFRAN ODT4 MG SL (11:32)
[2017-10-25] MEDS ORDERED: SENNA LAXATIVE1 EACH PO (11:33)
[2017-10-25] MEDS ORDERED: TYLENOL WITH C1 EACH PO (11:34)
--- NOTE | 2017-10-26 00:12 | Discharge Summary ---
DIAMOND GRINDER: Dr. Quan Bass. PRIMARY CARE PHYSICIAN: Dr. dEge FINAL DIAGNOSES 1. Transitional cell carcinoma. 2. History of right nephrectomy, now status post urological procedures of right total ureterectomy with removal of the cuff of the urinary bladder and also umbilical hernia repair. SUMMARY: This is a 67-year-old male with transitional cell cancer of the right kidney. Patient had previous right nephrectomy and now he underwent the procedures with right total ureterectomy due to metastatic transitional cell cancer. He also had umbilical hernia that is status post removal. Patient has a few days recovery postoperatively. Now, the patient is stable. He is ambulatory, pain control. He will be discharged home with a [place] catheter. The patient will follow up with Dr. Quan Bass as an outpatient. Please review the operative report. Patient will resume his home medications for blood pressure. New prescription Tylenol No. 3, Zofran, and Senna. The patient is stable, discharged home. Follow up with his family doctor for routine hospitalization. Follow up with Dr. Quan Bass for postoperative care. Job#: [id number] CQ
== END 2017-10-25 12:15 | disposition home or self-care (01) | DRG 657 ==
LOC: OR 07:16 → PACU V 13:31 → IMCU 18:52 → MED/SURG 10-22 12:54
PROVIDERS: ADMIT Internal Medicine; ATTEND Internal Medicine
PROC: 07BC0ZX Excision of Pelvis Lymphatic, Open Approach, Diagnostic (ICD-10-PCS; 2017-10-21)
PROC: 0WQF0ZZ Repair Abdominal Wall, Open Approach (ICD-10-PCS; 2017-10-21)
PROC: 0TT60ZZ Resection of Right Ureter, Open Approach (ICD-10-PCS; principal; 2017-10-21 10:00)
DX: C79.19 Secondary malignant neoplasm of other urinary organs (principal); C64.1 Malignant neoplasm of right kidney, except renal pelvis; N17.9 Acute kidney failure, unspecified; R31.9 Hematuria, unspecified; K42.9 Umbilical hernia without obstruction or gangrene; Z90.5 Acquired absence of kidney; E83.41 Hypermagnesemia; E87.6 Hypokalemia; I12.9 Hypertensive chronic kidney disease with stage 1 through stage 4 chronic kidney disease, or unspecified chronic kidney disease; N18.9 Chronic kidney disease, unspecified
CPT/HCPCS: 36415; 71045; 80048; 83735; 85025; 88305; 88307; 93005; J0360; J0690; J1100; J1170; J1200; J2001; J2250; J2270; J2550; J2710

== ENCOUNTER 2021-05-29 13:26 | Emergency (ER) | payer MEDICARE, OTHER ==
[~2021-05-29] VITALS: Ht 185.4 cm; Wt 108.9 kg
[~2021-05-29 13:26] MED LIST changes: +SENNA LAXATIVE1 EACH PO; +ZOFRAN ODT4 MG SL
[2021-05-29] MEDS ORDERED: HYDROCODONE/APAP 10MG-325MG TAB PO ONE (14:15)
== END 2021-05-29 15:07 | disposition home or self-care (01) ==
LOC: ER 13:30
DX: M54.50 Low back pain, unspecified (principal); I10 Essential (primary) hypertension
CPT/HCPCS: 99282